=== PATIENT | female | born 2000 | race African-American/Black ===

== ENCOUNTER 2022-12-26 17:40 | Emergency (ER) | payer SELFPAY ==
[~2022-12-26] VITALS: Ht 162.6 cm; Wt 54.3 kg
[2022-12-26 17:58] VITALS: BP 108/57
[2022-12-26 19:00] LABS: CLARITY URINE CLEAR (CLEAR); COLOR URINE YELLOW (YELLOW); KETONES URINE NEGATIVE (NEGATIVE); LEUKOCYTE ESTERASE URINE NEGATIVE (NEGATIVE); NITRITE URINE NEGATIVE (NEGATIVE); OCCULT BLOOD URINE NEGATIVE (NEGATIVE); PROTEIN URINE TRACE (NEGATIVE); SPECIFIC GRAVITY URINE 1.009 (1.005-1.030)
[2022-12-26 19:20] LABS: BASOPHILS % 1.5 % (0.0-2.0); EOSINOPHILS % 0.8 % (0.0-5.0); LYMPHOCYTES % 35.3 % (20.0-50.0); MEAN CORPUSCULAR HEMOGLOBIN 33.9 pg (28.0-32.0); MEAN CORPUSCULAR VOLUME 95.5 fL (81.0-99.0); MEAN PLATELET VOLUME 7.4 fl (7.4-10.4); MONOCYTES % 6.7 % (2.0-8.0); NEUTROPHILS % 55.7 % (40.0-76.0); PLATELET 491 x1000/uL (130-400); RED BLOOD CELL COUNT 2.12 mill/uL (4.2-5.4); RED CELL DISTRIBUTION WIDTH 19.8 % (11.6-14.6)
[2022-12-26 19:22] LABS: HEMATOCRIT. 20.3 % (36.0-48.0); HEMOGLOBIN. 7.2 g/dL (12.0-16.0)
[2022-12-26 19:39] LABS: CHLORIDE 107 mEq/L (98-107)
[2022-12-26 20:03] LABS: B-HCG QUANTITATIVE 21500 mIU/mL (<3)
== END 2022-12-26 21:50 | disposition home or self-care (01) ==
LOC: ER 18:04
DX: O26.892 Other specified pregnancy related conditions, second trimester (principal); Z3A.15 15 weeks gestation of pregnancy; Z98.890 Other specified postprocedural states; D64.9 Anemia, unspecified
CPT/HCPCS: 36415; 76830; 76856; 80053; 81003; 81025; 84702; 85025; 86850; 86900; 99284

== ENCOUNTER 2023-01-26 18:09 | Emergency (ER) | payer SELFPAY ==
[~2023-01-26] VITALS: Ht 162.6 cm; Wt 55.0 kg
[2023-01-26 18:21] VITALS: BP 126/59
[2023-01-27 01:25] LABS: CLARITY URINE CLOUDY (CLEAR); COLOR URINE DARK YELLOW (YELLOW); KETONES URINE NEGATIVE (NEGATIVE); LEUKOCYTE ESTERASE URINE 1+ (NEGATIVE); NITRITE URINE NEGATIVE (NEGATIVE); OCCULT BLOOD URINE TRACE (NEGATIVE); PH URINE 5.5 (4.5-8.0); PROTEIN URINE 2+ (NEGATIVE); SPECIFIC GRAVITY URINE 1.014 (1.005-1.030)
[2023-01-27] MEDS ORDERED: CEPH500C2 MT (02:17)
[2023-01-27] MEDS ORDERED: DOCO200C5 MT ×2 (02:21)
[2023-01-27] MEDS ORDERED: PNV1TABL76 MT (02:22)
[2023-01-27] MEDS ORDERED: CEPHALEXIN 250MG CAPSULE PO ONE (02:30)
[2023-01-29 04:07] LABS: NEISSERIA GONORRHOEAE NAA Negative (Negative)
== END 2023-01-27 02:40 | disposition home or self-care (01) ==
LOC: ER 18:09
DX: O26.892 Other specified pregnancy related conditions, second trimester (principal); O44.02 Complete placenta previa NOS or without hemorrhage, second trimester; O23.42 Unspecified infection of urinary tract in pregnancy, second trimester; N39.0 Urinary tract infection, site not specified; O99.012 Anemia complicating pregnancy, second trimester; D57.1 Sickle-cell disease without crisis; Z3A.20 20 weeks gestation of pregnancy
CPT/HCPCS: 76805; 76817; 81003; 81025; 87491; 87591; 99284; Z7610